=== PATIENT | female | born 1945 | race Caucasian/White ===

== ENCOUNTER 2016-11-19 11:01 | Observation (INO) | payer MEDICARE, MEDICAID ==
[~2016-11-19] VITALS: Ht 154.9 cm; Wt 123.0 kg
[~2016-11-19 11:01] MED LIST: LACTATED RINGER'S 1000 ML INJ 1,000 ML IV ONE; NEOSTIGMINE 3 MG/3 ML SYR IV ONE; ONDANSETRON HCL 4 MG/2 ML VIAL IV PUSH ONE; PROPOFOL 200 MG/20 ML AMP IV ONE
[2016-11-19] MEDS: LACTATED RINGER'S 1000 ML IV SCH (11:55)
[2016-11-19 11:57] VITALS: BP 169/97; PULSE 89; RESP 18; TEMP 97.9; O2SAT 96
[2016-11-19] MEDS ORDERED: PROPOFOL 200 MG/20 ML AMP IV ONE (12:00)
[2016-11-19] MEDS ORDERED: BUPIVACAINE/EPINEPHRINE 0.25% PF 30 ML VIAL ONE ×2 (12:25→14:02)
[2016-11-19 12:30] LABS: AUTOMATED NEUTROPHIL # 5.5 TH/MM3 (1.8-7.7); BASOPHIL % 0.6 % (0.0-2.0); EOSINOPHIL # 0.2 TH/MM3 (0-0.4); HEMATOCRIT 34.1 % (35.0-46.0); HEMO FLAGS DIFF FINAL; LYMPH % 20.6 % (9.0-44.0); LYMPHOCYTE # 1.6 TH/MM3 (1.0-4.8); MEAN CELL VOLUME 78.4 FL (80.0-100.0); MEAN CORPUSCULAR HEMOGLOBIN 26.2 PG (27.0-34.0); MEAN CORPUSCULAR HGB CONC 33.4 % (32.0-36.0); NEUT % 69.8 % (16.0-70.0); PLATELET COUNT 255 TH/MM3 (150-450); RED BLOOD COUNT 4.35 MIL/MM3 (4.00-5.30); RED CELL DISTRIBUTION WIDTH 14.2 % (11.6-17.2); WHITE BLOOD COUNT 7.9 TH/MM3 (4.0-11.0)
[2016-11-19] MEDS ORDERED: METOPROLOL TARTRATE 25 MG TAB PO PRN (12:30)
[2016-11-19] MEDS: SODIUM CHLORID 0.9% 500 ML IV SCH (12:30)
[2016-11-19] MEDS ORDERED: INSULIN HUMAN REGULAR 1,000 UNITS/10 ML VIAL SQ PRN (12:30)
[2016-11-19] MEDS: ceFAZolin 2 GM PREMIX 50 ML IV SCH (12:40)
[2016-11-19] MEDS ORDERED: APREPITANT 40 MG CAP ONE (12:54)
[2016-11-19] MEDS ORDERED: FAMOTIDINE 20 MG/2 ML VIAL ONE (12:54)
[2016-11-19] MEDS ORDERED: DEXAMETHASONE SOD PHOS 4 MG/ML VIAL ONE (13:10)
[2016-11-19] MEDS ORDERED: MIDAZOLAM HCL 2 MG/2 ML VIAL ONE ×2 (13:22→16:05)
[2016-11-19] MEDS ORDERED: fentaNYL CITRATE 250 MCG/5 ML AMP ONE (13:22)
[2016-11-19] MEDS ORDERED: ACETAMINOPHEN 1000 MG/100 ML VIAL IV ONE (13:23)
[2016-11-19] MEDS ORDERED: HYDROmorphone HCL PF 2 MG/ML VIAL ONE (13:37)
[2016-11-19] MEDS ORDERED: DO NOT ADM ANY ANTICOAGULANT DRUGS XX PRN (15:56)
[2016-11-19] MEDS: LACTATED RINGER'S 1000 ML INJ 1,000 ML IV SCH (15:57)
[2016-11-19] MEDS ORDERED: ACETAMINOPHEN/HYDROcodone 325 MG/5 MG TAB PO PRN (16:00)
[2016-11-19] MEDS ORDERED: MAGNESIUM HYDROXIDE SUSP 30 ML CUP PO PRN (16:00)
[2016-11-19] MEDS ORDERED: Post-op Orders (for Pharmacy) MISC XX ONE (16:00)
--- NOTE | 2016-11-19 16:05 | PD.OP ---
Operative Report Date of Surgery: Nov 19, 2016 Preoperative Diagnosis: incisional hernia x 2 Postoperative Diagnosis: same Procedure: open repair RUQ incisional hernia with retrorectus TIGR mesh, 6x 8 cm Open repair RLQ incisional hernia with 4x8 cm marlex mesh onlay. Anesthesia: general Surgeon: Bryce Lopez Medical Office Technician(s): Francisco Operation and Findings: EBL less than 25 ml 5 cm RUQ defect, retrorectus space able to be accessed. RLQ defect 4 cm diameter, retrorectus space not accessable due to scar. Bryce Lopez MD Nov 19, 2016 16:05
[2016-11-19] MEDS ORDERED: *ONDANSETRON 4 MG VIAL PERIprocedural Use ONLY ONE (16:12)
[2016-11-19] MEDS ORDERED: *HYDROmorphone PF 1 MG VIAL PERIprocedural Use ONLY ONE ×2 (16:24→18:34)
[2016-11-19] MEDS: ACETAMINOPHEN 1000 MG/100 ML VIAL IV SCH ×2 (18:00→23:46)
[2016-11-19] MEDS ORDERED: KETOROLAC TROMETHAMINE 30 MG/ML (IVP) VIAL IV PUSH SCH (18:00)
[2016-11-19] MEDS ORDERED: *diphenhydrAMINE HCL 50 MG/ML VIAL PERIprocedural Use ONLY ONE (18:34)
[2016-11-19 20:00] VITALS: BP 116/65; PULSE 97; RESP 18; TEMP 98.6; O2SAT 96
[2016-11-19] MEDS: SODIUM CHLORIDE 0.9% FLUSH 5 ML FLUSH IVF SCH (20:48)
[2016-11-19] MEDS: DOCUSATE SODIUM 100 MG CAP PO SCH (20:49)
[2016-11-19] MEDS: ONDANSETRON HCL 4 MG/2 ML VIAL IV PRN (20:49)
[2016-11-19] MEDS: HYDROmorphone HCL PF 1 MG/ML VIAL IV PRN ×2 (21:00→23:45)
[2016-11-20] VITALS (7 sets, daily range): BP systolic 113–142; BP diastolic 65–90; PULSE 72–109; RESP 12–20; TEMP 97.6–98.2; O2SAT 93–98
[2016-11-20] MEDS: ONDANSETRON HCL 4 MG/2 ML VIAL IV PRN ×5 (01:06→21:12)
[2016-11-20] MEDS: LACTATED RINGER'S 1000 ML INJ 1,000 ML IV SCH ×3 (03:05→19:53)
[2016-11-20] MEDS: ceFAZolin 2 GM PREMIX 50 ML IV SCH ×2 (03:05→07:53)
[2016-11-20] MEDS: HYDROmorphone HCL PF 1 MG/ML VIAL IV PRN ×7 (03:48→23:53)
[2016-11-20] MEDS: SODIUM CHLORID 0.9% 500 ML IV SCH (05:10)
[2016-11-20] MEDS: ACETAMINOPHEN 1000 MG/100 ML VIAL IV SCH ×5 (06:00→23:53)
--- NOTE | 2016-11-20 07:52 | MP ---
cc: JOSIANE TAY M.D. DATE OF SURGERY 11/19/2016 PREOPERATIVE DIAGNOSIS Ventral incisional hernia x2. POSTOPERATIVE DIAGNOSES Ventral incisional hernia x2. PROCEDURE Open repair right upper quadrant incisional hernia with retrorectus TIGR mesh 6 x 8 cm, open repair right lower quadrant incisional hernia with Marlex mesh 4 x [address] Josiane Tay ANESTHESIA General endotracheal INDICATIONS This is a very pleasant 71-year-old woman well-known to me from prior laparoscopic repair of a large left flank recurrent incisional hernia with [place]-Toni and who presents with slightly increasing in size incisional hernias in the right upper and right lower quadrant of the abdomen. She has had multiple prior surgeries and these are likely related to incisional interventions in the past. Due to the relative local focality to the hernias and the desire for a less invasive procedure, plans were made for local open repairs with mesh. INTRAOPERATIVE FINDINGS Right upper quadrant defect approximately 5 cm in length. The retrorectus space was able to be accessed in the TIGR mesh positioned in the retrorectus space as a buttress to the primary repair. Right lower quadrant defect approximately 4 cm in diameter, the retrorectus space was not accessible due to depth of the wound and the severity of the scar. Primary closure with onlay Marlex mesh was performed. ESTIMATED BLOOD LOSS Less than 25 mL. DESCRIPTION OF PROCEDURES IN DETAIL The patient was identified as Jordyn Koroma, taken to the operating room, placed in the supine position. Sequential compression devices were placed on bilateral lower extremities. Following the induction of adequate general endotracheal anesthesia, the patient's abdomen was prepped and draped in the usual sterile fashion with Betadine. A time-out procedure was performed. Following completion of the time-out procedure to everyone's satisfaction within the room, proposed incisions were made with a marking pen overlying the area of the palpable herniated tissue. 0.25% Marcaine with epinephrine was placed at each incision site generously around the proposed area of dissection. The right upper quadrant was attended to first. The incision was carried out with a scalpel. Hemostasis was controlled with electrocautery dissecting posteriorly through generous subcutaneous fatty tissue layer until the herniated tissue was identified. This was from surrounding subcutaneous tissues which allowed for identification of the fascial edges. The posterior fascia and peritoneum were able to be dissected free of the herniated tissue and measurements were taken. A 6 x 8 cm piece of TIGR mesh was cut from a 10 x 15 inches piece and sutures were placed at the 12, 3, 6 and 9 o'clock positions with 2-0 PDS. These were then brought through the fascia with at least a 2 cm overlay using the Sovi suture passer device. The sutures were tied down and the primary fascial defect was closed with interrupted horizontal mattress 0-Prolene sutures. The subcutaneous space was then approximated with interrupted 2-0 Vicryl sutures and the skin was approximated with a running 4-0 Monocryl subcuticular suture. Mastisol and half-inch brown Steri-Strips were placed over the incision. Attention was then turned to the right lower quadrant. After infiltration of the area with local anesthetic, the incision was carried out with a scalpel and hemostasis controlled with electrocautery. Dissection continued posteriorly through a very deep subcutaneous fatty tissue layer until herniated contents were identified. These were from the subcutaneous fatty tissue so the fascial defect could be identified. There was no plane that could be obtained in the retrorectus position and therefore first the peritoneum was imbricated with 2-0 Vicryl suture and then the anterior fascia was approximated with a running 2-0 Vicryl suture. Measurements were taken. The anterior fascia was cleared to scar tissue and a 4 x 8 cm piece of Marlex mesh was cut and placed in an onlay position. It was held in place with interrupted 2-0 PDS sutures placed first at the 3 o'clock, then 9 o'clock position and then three separate sutures were placed on the inferior and superior edge making the mesh taut. Copious irrigation ensued. There was no evidence of bleeding. The subcutaneous layer was approximated gently with multiple interrupted 2-0 Vicryl sutures. Skin was approximated with a running 4-0 Monocryl subcuticular suture. Dressings were applied with Mastisol and inch brown Steri-Strips. A Primapore dressing was placed over both incision sites. The patient tolerated the procedure without apparent complication. Sponge, needle and instrument counts were correct at the end the case. MD LEANDRA Pantoja/ROCK /4:09 PM /7:41 AM
--- NOTE | 2016-11-20 08:20 | HHI.PR ---
Subjective Subjective Notes sitting up in chair. Had been emptying bladder normally, now just dribbles out, no dysuria. Mild nausea. Objective Vitals/I&O Vital Signs Date Time Temp Pulse Resp B/P Pulse Ox O2 Delivery O2 Flow Rate FiO2 11/20/16 00:00 97.6 98 18 140/82 98 11/19/16 21:55 Nasal Cannula 2.00 Labs Laboratory Tests Test 11/19/16 12:03 White Blood Count 7.9 Red Blood Count 4.35 Hemoglobin 11.4 Hematocrit 34.1 Mean Corpuscular Volume 78.4 Mean Corpuscular Hemoglobin 26.2 Mean Corpuscular Hemoglobin 33.4 Concent Red Cell Distribution Width 14.2 Platelet Count 255 Mean Platelet Volume 7.9 Neutrophils (%) (Auto) 69.8 Lymphocytes (%) (Auto) 20.6 Monocytes (%) (Auto) 6.0 Eosinophils (%) (Auto) 3.0 Basophils (%) (Auto) 0.6 Neutrophils # (Auto) 5.5 Lymphocytes # (Auto) 1.6 Monocytes # (Auto) 0.5 Eosinophils # (Auto) 0.2 Basophils # (Auto) 0.0 CBC Comment DIFF FINAL Differential Comment Lungs: Clear Abdomen: Non-distended, Other (mild bloody drainage on dressings, no erythema.) , Post-op tenderness Extremities: No edema, Perfused A/P Assessment and Plan POD 1 open repair incarcerated VIH x 2 with mesh. Nausea, some urinary issues. Pt requests to stay today with plans for Dc tomorrow. Will check UA, BMP, Magnesium. Bryce Lopez MD Nov 20, 2016 08:20
[2016-11-20] MEDS: DOCUSATE SODIUM 100 MG CAP PO SCH ×2 (08:29→19:52)
[2016-11-20] MEDS: SODIUM CHLORIDE 0.9% FLUSH 5 ML FLUSH IVF SCH ×2 (08:29→19:51)
[2016-11-20 11:55] LABS: BLOOD, URINE NEG (NEG); GLUCOSE,URINE NEG (NEG); KETONE, URINE NEG (NEG); MUCUS URINE FEW /lpf (OCC); NITRITE,URINE NEG (NEG); PH, URINE 5.5 (5.0-8.5); SQUAMOUS EPITHELIAL CELL URINE 1 /hpf (0-5); URINE COLOR YELLOW (YELLW/STRAW)
[2016-11-20 11:58] LABS: COMMENT (UR) CULT NOT INDICATED; CULTURE IF INDICATED CULT NOT INDICATED
[2016-11-20] MEDS: LACTATED RINGER'S 1000 ML IV SCH (12:30)
[2016-11-20 13:44] LABS: BICARBONATE 28.9 MEQ/L (21.0-32.0); POTASSIUM 4.6 MEQ/L (3.5-5.1)
[2016-11-20] MEDS: ENOXAPARIN SODIUM 40 MG/0.4 ML SYRINGE SQ SCH (15:24)
[2016-11-21] MEDS: HYDROmorphone HCL PF 1 MG/ML VIAL IV PRN ×9 (01:54→22:46)
[2016-11-21] MEDS: ACETAMINOPHEN 1000 MG/100 ML VIAL IV SCH ×4 (06:00→22:46)
[2016-11-21] MEDS: LACTATED RINGER'S 1000 ML INJ 1,000 ML IV SCH ×3 (07:57→22:47)
[2016-11-21 08:00] VITALS: BP 121/72; PULSE 93; RESP 20; TEMP 97.1; O2SAT 92
[2016-11-21] MEDS: SODIUM CHLORIDE 0.9% FLUSH 5 ML FLUSH IVF SCH ×2 (08:05→22:46)
[2016-11-21] MEDS: ONDANSETRON HCL 4 MG/2 ML VIAL IV PRN ×3 (08:06→17:20)
[2016-11-21] MEDS: DOCUSATE SODIUM 100 MG CAP PO SCH ×2 (08:07→22:46)
[2016-11-21] MEDS ORDERED: RESP: ALBUTEROL CONC 2.5 MG/0.5 ML NEB NEB ONE (09:45)
[2016-11-21] MEDS ORDERED: HYDR-3533 PO (09:48)
[2016-11-21] MEDS ORDERED: ZOFR4TAB PO (09:48)
--- NOTE | 2016-11-21 09:50 | HHI.PR ---
Subjective Subjective Notes nausea, feels like phlegm stuck in back of throat. Objective Vitals/I&O Vital Signs Date Time Temp Pulse Resp B/P Pulse Ox O2 Delivery O2 Flow Rate FiO2 11/21/16 08:00 97.1 93 20 121/72 92 11/20/16 18:48 21 11/19/16 21:55 Nasal Cannula 2.00 Labs Laboratory Tests Test 11/20/16 11/20/16 10:20 11:07 Sodium Level 137 Potassium Level 4.6 Chloride Level 101 Carbon Dioxide Level 28.9 Anion Gap 7 Blood Urea Nitrogen 14 Creatinine 0.87 Estimat Glomerular Filtration 64 Rate Random Glucose 129 Calcium Level 8.7 Magnesium Level 2.0 Urine Color YELLOW Urine Turbidity CLEAR Urine pH 5.5 Urine Specific [place] 1.025 Urine Protein TRACE Urine Glucose (UA) NEG Urine Ketones NEG Urine Occult Blood NEG Urine Nitrite NEG Urine Bilirubin NEG Urine Urobilinogen LESS THAN 2.0 Urine Leukocyte Esterase NEG Urine RBC 1 Urine WBC 1 Urine Squamous Epithelial 1 Cells Urine Mucus FEW Microscopic Urinalysis Comment CULT NOT INDICATED Lungs: Clear Abdomen: Non-distended, Other (incision sites clean and dry, no erythema.), Post-op tenderness Extremities: No edema, Perfused A/P Assessment and Plan POD 2 open repair incarcerated VIH x 2 with mesh. Labs OK. UA negative. IS and albuterol ordered. Hopefully home tomorrow. Keep walking. Bryce Lopez MD Nov 21, 2016 09:50
[2016-11-21 12:00] VITALS: BP 124/75; PULSE 89; RESP 20; TEMP 98; O2SAT 96
[2016-11-21] MEDS: ENOXAPARIN SODIUM 40 MG/0.4 ML SYRINGE SQ SCH (14:06)
[2016-11-21] MEDS ORDERED: RESP: ALBUTEROL 2.5 MG/3 ML NEB (SCH) INH ONE (15:00)
[2016-11-21 16:00] VITALS: BP 116/67; PULSE 93; RESP 20; TEMP 98.4; O2SAT 92
[2016-11-21 20:00] VITALS: BP 140/80; PULSE 94; RESP 18; TEMP 96.7; O2SAT 92
[2016-11-21 21:02] VITALS: O2SAT 94
[2016-11-22] VITALS: BP 134/78; PULSE 90; RESP 20; TEMP 97.2; O2SAT 93
[2016-11-22] MEDS: HYDROmorphone HCL PF 1 MG/ML VIAL IV PRN ×7 (00:46→15:15)
[2016-11-22] MEDS: ONDANSETRON HCL 4 MG/2 ML VIAL IV PRN ×3 (00:48→10:55)
[2016-11-22] MEDS: ACETAMINOPHEN 1000 MG/100 ML VIAL IV SCH ×2 (05:56→07:35)
[2016-11-22] MEDS: SODIUM CHLORIDE 0.9% FLUSH 5 ML FLUSH IVF SCH (07:35)
[2016-11-22] MEDS: DOCUSATE SODIUM 100 MG CAP PO SCH (07:35)
[2016-11-22 08:00] VITALS: BP_SYST 126; BP_SYST 129; BP_DIAS 65; BP_DIAS 80; PULSE 91; PULSE 97; RESP 12; RESP 18; TEMP 97; TEMP 98.6; O2SAT 90; O2SAT 97
[2016-11-22 12:00] VITALS: BP 133/74; PULSE 92; RESP 20; TEMP 96.9; O2SAT 95
[2016-11-22] MEDS: SODIUM CHLORIDE 0.9% FLUSH 5 ML FLUSH IVF PRN ×2 (13:19→15:16)
[2016-11-22 13:48] VITALS: RESP 18
[2016-11-22] MEDS: LACTATED RINGER'S 1000 ML INJ 1,000 ML IV SCH (13:57)
[2016-11-22] MEDS: ENOXAPARIN SODIUM 40 MG/0.4 ML SYRINGE SQ SCH (15:16)
[2016-11-22] MEDS ORDERED: DILA2TAB2 PO (16:01)
[2016-11-22] MEDS ORDERED: diphenhydrAMINE HCL 2%/ZINC ACETATE 0.1% CREAM 30 APPLIC/30 GM TUBE TOPICAL ONE (16:15)
--- NOTE | 2016-12-13 14:57 | HHI.DS ---
Discharge Summary Admission Date Nov 19, 2016 at 16:31 Discharge Date: Nov 22, 2016 Admitting Diagnosis Brief History 71 year old female POD2 open repair of incarcerated ventral incision hernia repair with mesh. PE at Discharge Alert and awake Cardio: RRR Resp: CTAB Abd: incision c/d/i Hospital Course This is a 71 year old female s/p open repair incarcerated VIH x 2 with mesh. The patient was able to tolerate a regular diet. Her pain was controlled using oral pain medications. She was encouraged to use her inceptive spirometer. She was DCed home with instructions to follow up in the office. Pt Condition on Discharge: Good Discharge Disposition: Discharge Home Discharge Instructions DIET: Follow Instructions for: As Tolerated, No Restrictions Activities you can perform: Shower Only-No Bath Other Activity Instructions: wear binder for support. Mary Chavez Dec 13, 2016 14:57
== END 2016-11-22 16:46 | disposition home or self-care (01) ==
LOC: HSDC 11:01 → HSDI 16:31 → N07A 19:11
PROVIDERS: ADMIT Surgery Trauma Surgery; ATTEND Surgery Trauma Surgery
DX: K43.2 Incisional hernia without obstruction or gangrene (principal); Z85.528 Personal history of other malignant neoplasm of kidney
CPT/HCPCS: 00832; 49560; 49568; 80048; 81001; 83735; 85025; 94150; 94664; C1781; G0378; J0131; J0690; J1100; J1170; J1200; J1650; J2250; J2405; J2710; J3010; J7120; J7613; J8501

== ENCOUNTER → 2016-12-19 | Outpatient (CLI) | payer MEDICARE, MEDICAID ==
[~2016-12-19] MED LIST changes: +DILA2TAB2 PO; -LACTATED RINGER'S 1000 ML INJ 1,000 ML IV ONE; -NEOSTIGMINE 3 MG/3 ML SYR IV ONE; -ONDANSETRON HCL 4 MG/2 ML VIAL IV PUSH ONE; -PROPOFOL 200 MG/20 ML AMP IV ONE; +ZOFR4TAB PO
== END ==
LOC: PLAB 11:15
PROVIDERS: ATTEND Surgery Trauma Surgery
DX: Z01.89 Encounter for other specified special examinations (principal)
CPT/HCPCS: 36415; 82565; 84520

== ENCOUNTER → 2018-01-23 | Outpatient (CLI) | payer MEDICARE, MEDICAID ==
[~2018-01-23] MED LIST changes: -DILA2TAB2 PO; +DILA2TAB4 PO; +META48.53 PO
[2018-01-23 11:29] LABS: AUTOMATED NEUTROPHIL # 5.2 TH/MM3 (1.8-7.7); BASOPHIL # 0.1 TH/MM3 (0-0.2); BASOPHIL % 0.8 % (0.0-2.0); EOSINOPHIL # 0.2 TH/MM3 (0-0.4); EOSINOPHIL % 2.8 % (0.0-4.0); HEMATOCRIT 36.1 % (35.0-46.0); LYMPHOCYTE # 1.7 TH/MM3 (1.0-4.8); MEAN CELL VOLUME 81.2 FL (80.0-100.0); MEAN CORPUSCULAR HGB CONC 33.3 % (32.0-36.0); MEAN PLATELET VOLUME 7.9 FL (7.0-11.0); MONO % 5.9 % (0.0-8.0); MONOCYTE # 0.5 TH/MM3 (0-0.9); NEUT % 68.5 % (16.0-70.0); PLATELET COUNT 283 TH/MM3 (150-450); RED BLOOD COUNT 4.45 MIL/MM3 (4.00-5.30); RED CELL DISTRIBUTION WIDTH 13.8 % (11.6-17.2); WHITE BLOOD COUNT 7.7 TH/MM3 (4.0-11.0)
[2018-01-23 11:56] LABS: ALT (GPT) 25 U/L (10-53)
[2018-01-23 11:59] LABS: ALKALINE PHOSPHATASE 105 U/L (45-117); TOTAL BILIRUBIN ADULT 0.4 MG/DL (0.2-1.0); TOTAL PROTEIN 8.2 GM/DL (6.4-8.2)
[2018-01-23 12:01] LABS: ALBUMIN 3.9 GM/DL (3.4-5.0); AST (GOT) 20 U/L (15-37); BICARBONATE 30.4 MEQ/L (21.0-32.0); BLOOD UREA NITROGEN 13 MG/DL (7-18); CALCIUM 9.6 MG/DL (8.5-10.1); CHLORIDE 106 MEQ/L (98-107); CREATININE 0.88 MG/DL (0.50-1.00); GLOMERULAR FILTRATION RATE 63 ML/MIN (>89); GLUCOSE,FASTING 104 MG/DL (74-99); SODIUM (NA) 140 MEQ/L (136-145)
--- NOTE | 2018-01-24 11:05 | EKG ---
Date Performed: 01/23/2018 Time Performed: 10:38:34 PTAGE: 72 years EKG: Sinus rhythm NORMAL ECG Compared to PREVIOUS TRACING , PACs have resolved. PREVIOUS TRACIN04/19/2016 06.56 DOCTOR: Shon Robles Interpretating Date/Time 01/24/2018 11:03:35
== END ==
LOC: CPRE 10:10
PROVIDERS: ATTEND Surgery Trauma Surgery
DX: Z01.810 Encounter for preprocedural cardiovascular examination (principal); Z01.812 Encounter for preprocedural laboratory examination; R10.9 Unspecified abdominal pain
CPT/HCPCS: 36415; 80053; 85025; 93005

== ENCOUNTER 2018-01-28 11:16 | Inpatient (IN) | payer MEDICARE, MEDICAID ==
[~2018-01-28] VITALS: Ht 154.9 cm; Wt 115.1 kg
[~2018-01-28 11:16] MED LIST changes: -DILA2TAB4 PO; -ZOFR4TAB PO
[2018-01-28] MEDS ORDERED: PROPOFOL 200 MG/20 ML AMP IV ONE (12:00)
[2018-01-28] MEDS ORDERED: SODIUM CHLORID 0.9% 500 ML IV PRN (12:00)
[2018-01-28] MEDS ORDERED: NEOSTIGMINE 5 MG/5 ML SYRINGE IV PUSH ONE (12:00)
[2018-01-28] MEDS ORDERED: CHLORHEXIDINE GLUCONATE 2 % 1 PACK (2 CLOTHS) TOPICAL PRN (12:00)
[2018-01-28] MEDS ORDERED: DEXAMETHASONE SOD PHOS 4 MG/ML VIAL IV ONE (12:00)
[2018-01-28] MEDS ORDERED: POVIDONE IODINE 5% (ANTISEPSIS KIT) 4 APPLICATIONS EACH NARE PRN (12:00)
[2018-01-28] MEDS ORDERED: ceFAZolin 2 GM/NS PREMIX 100 ML IV SCH (12:00)
[2018-01-28] MEDS ORDERED: LIDOCAINE HCL 1% PF 5 ML SYRINGE OTHER ONE (12:00)
[2018-01-28] MEDS ORDERED: GLYCOPYRROLATE 1 MG/5 ML SYRINGE IV PUSH ONE (12:00)
[2018-01-28] MEDS ORDERED: ONDANSETRON HCL 4 MG/2 ML VIAL IV PUSH ONE ×2 (12:00→22:15)
[2018-01-28] MEDS ORDERED: INSULIN HUMAN REGULAR 1,000 UNITS/10 ML VIAL SQ PRN (12:00)
[2018-01-28] MEDS ORDERED: METOPROLOL TARTRATE 25 MG TAB PO PRN (12:00)
[2018-01-28] MEDS ORDERED: ROCURONIUM INJ 50 MG/5 ML SYRINGE IV PUSH ONE (12:00)
[2018-01-28] MEDS: LACTATED RINGER'S 1000 ML IV PRN (12:48)
[2018-01-28] MEDS ORDERED: BUPIVACAINE/EPINEPHRINE 0.25% 50 ML VIAL ONE ×2 (12:54→16:04)
[2018-01-28] MEDS ORDERED: HYDROmorphone HCL PF 2 MG/ML VIAL ONE ×2 (13:08→15:26)
[2018-01-28] MEDS ORDERED: APREPITANT 40 MG CAP ONE (13:10)
[2018-01-28] MEDS ORDERED: FAMOTIDINE 20 MG/2 ML VIAL ONE (13:18)
[2018-01-28] MEDS ORDERED: MIDAZOLAM HCL 2 MG/2 ML VIAL IV ONE (13:30)
[2018-01-28] MEDS ORDERED: APREPITANT 40 MG CAP PO ONE (13:30)
[2018-01-28] MEDS ORDERED: FAMOTIDINE 20 MG/2 ML VIAL IV ONE (13:30)
[2018-01-28] MEDS ORDERED: NALOXONE HCL 0.4 MG/ML AMP ONE (16:49)
[2018-01-28] MEDS ORDERED: Post-op Orders (for Pharmacy) XX ONE (17:00)
[2018-01-28] MEDS ORDERED: NALOXONE HCL 0.4 MG/ML AMP IV PUSH PRN ×2 (17:00)
[2018-01-28] MEDS ORDERED: NON-FORMULARY DRUG (Psyllium Powder (Metamucil Original Texture) 1 SCOOP) PO PRN (17:00)
[2018-01-28] MEDS: PANTOPRAZOLE SOD 40 MG DELAYED RELEASE TAB PO SCH (17:00)
--- NOTE | 2018-01-28 17:14 | PD.OP ---
Operative Report Date of Surgery: Jan 28, 2018 Preoperative Diagnosis: Multiple recurrent ventral incisional hernias Gallstones, right upper quadrant pain Postoperative Diagnosis: Same Extensive intra-abdominal adhesions Procedure: Laparoscopic extensive adhesio lysis greater than 1 hour Laparoscopic repair recurrent ventral incisional hernias with [place]-Toni DualMesh 20 x 22 cm Laparoscopic cholecystectomy Anesthesia: General endotracheal Surgeon: Bryce Lopez Interpretive Program Coordinator(s): Juaquin Operation and Findings: Indications for procedure Is a very pleasant 72-year-old woman familiar to me after prior laparoscopic repair of a large left flank incisional hernia with [place]-Toni DualMesh. She is developed relatively asymptomatic recurrent ventral incisional hernias until recently when she began experiencing increasing episodes of pain. CT scan demonstrates 3 separate ventral incisional hernia defects in addition to gallstones confirmed on ultrasound. The patient desired operative intervention. Intraoperative findings extensive intra-abdominal adhesions, 3 separate ventral incisional hernia defects 1 upper midline on lower midline and one left side abdominal wall just medial to previously placed mesh. Incarcerated contents safely reduced. No evidence of intra-abdominal bowel injury. Gallbladder relatively noninflamed removed and sent to pathology. Estimated blood loss 50 mL. Description of procedure in detail The patient was identified as Jordyn Koroma taken to the operating room and placed in a supine position. Sequential compression devices were placed on bilateral lower extremities. Following induction of adequate general endotracheal anesthesia the patient's abdomen was prepped and draped in usual sterile fashion with Betadine. A timeout procedure was performed. Following completion of timeout procedure everyone's satisfaction within the room local anesthetic was infiltrated the proposed right lateral subcostal incision site. A 2-3 cm transverse incision was carried out the scalpel at the site dissection continued posteriorly using the surgeon's finger and a hemostat. This occurred through the anterior fascia and muscular layers until the posterior fashion peritoneum was encountered and this was entered with the surgeon's finger. A 5 mm balloon tip Evans trocar was placed in the peritoneal cavity its balloon inflated and CO2 insufflation to level of 15 mmHg ensued. Laparoscopic camera was placed into the peritoneal cavity and intra-abdominal adhesions were discovered. Right side of the abdominal cavity was relatively uninvolved and 2 5 mm trochars were placed into the peritoneal cavity through separate incision sites after instillation of local anesthetic anesthetic. Easy lysis was then performed. Adhesions were taken down with a combination of blunt dissection and when safe harmonic scalpel. Care was taken to avoid using the harmonic scalpel anywhere close to intestine. 3 separate hernia defects were identified and the tissue incarcerated in the defects was carefully removed. One was in the upper midline one was in the lower midline and the final one was found in the left mid abdomen just medial to the previously placed mesh. This corresponded with what was seen on the preoperative CT scan. Once this was completed 2 of the 5 mm trochars removed to a more medial position allowing for removal of the gallbladder. Separate incisions after instillation of local anesthetic was performed. Laparoscopic cholecystectomy was then performed in a dome down technique. The gallbladder was removed using the harmonic scalpel. Cystic arterial branch was divided with a harmonic scalpel. The cystic duct was isolated from surrounding tissues and ligated proximally and distally with 0 PDS Endoloops. The cystic duct was divided with a harmonic scalpel. The gallbladder was placed into an Endo retrieval bag and removed through the initial right lateral subcostal incision site and passed off the field for pathologic evaluation. There was no spillage of bile. The right upper quadrant was irrigated out copiously with saline and small amount of bloody drainage was suctioned out. The gallbladder fossa was hemostatic. The cystic arterial stump was dry. The cystic duct ligature remained intact. Attention was then returned to repair of the ventral incisional hernias. Measurement of the area of required to be covered was performed and a 20 x 30 cm piece of [place]-Toni DualMesh was selected. It was cut to more oval-shaped 20 x 22 cm piece and marked the proposed top and bottom right and left sides on both the smooth side and the corduroy side. [place] CVO sutures were then placed about a centimeter to from the edge of the mesh at the 12:00 6:00 3:00 and 9:00 positions. The mesh was then rolled and placed into the peritoneal cavity through the right lateral subcostal incision site taking care to avoid the mesh touching the skin. Intra-abdominally the mesh was unrolled and sutures which had been placed were brought out through separate small stab incisions after instillation of local anesthetic using the [place] suture passer device. 3 o' clock position then 12 o'clock position and 6 o'clock position and 9 o'clock position sutures were brought up. The mesh was taught in a megan shape after this was performed. The sutures were tied down. Using the tacking device tacks were then placed every 1-2 cm along the periphery of the mesh first between the 3 and 6 o'clock position then the 9 and 12 o'clock position then the 12 and 3 o'clock position and finally between the 6 and 9:00 positions. His created a nice taut mesh broadly covering the hernia defects. Additional full-thickness stay sutures using [place] CVO sutures were then placed equidistant between the 3 and 6:00 6 and 9:00 12 and 3:00 and finally between the 9 and 12: 00 positions. The [place] suture passer was used to complete this portion of the procedure. Photographs were taken of the completed procedure. Hernia defects were broadly covered. Trochars were sequentially removed under direct laparoscopic view and there was no evidence of bleeding from trocar sites. The peritoneal cavity was actively desufflated through the right lateral subcostal trocar. Right lateral subcostal incision was closed with multiple interrupted 0 Vicryl sutures at the deep and superficial fascial layers. Skin incisions were trochars were placed were closed with multiple interrupted 4-0 Monocryl subcuticular sutures. Dressings were applied with Mastisol and half-inch brown Steri-Strips. A sterile towel and a customized abdominal binder were then placed. The patient tolerated the procedure without apparent complication. Sponge needle and instrument counts were correct at the end of the case. Due to the length of the procedure and the extent of the dissection prior to waking the patient up with a Scales catheter was placed. Bryce Lopez MD Jan 28, 2018 17:14
[2018-01-28] MEDS ORDERED: *ONDANSETRON 4 MG VIAL PERIprocedural Use ONLY ONE (17:32)
[2018-01-28] MEDS: ACETAMINOPHEN 1000 MG/100 ML 100 ML IV SCH (17:40)
[2018-01-28] MEDS: LACTATED RINGER'S 1000 ML INJ 1,000 ML IV SCH (17:45)
[2018-01-28] MEDS ORDERED: *HYDROmorphone PF 0.5 MG/0.5 ML PERIprocedure ONLY ONE ×2 (18:04→18:27)
[2018-01-28] MEDS ORDERED: DO NOT ADM ANY ANTICOAGULANT DRUGS PRN (18:30)
[2018-01-28] MEDS: ONDANSETRON HCL 4 MG/2 ML VIAL IV PUSH PRN (20:49)
[2018-01-28] MEDS: DOCUSATE SODIUM 100 MG CAP PO SCH (21:00)
[2018-01-28] MEDS: HYDROmorphone HCL PCA 6 MG/30 ML IV SCH (21:24)
[2018-01-28 21:41] VITALS: O2SAT 98
[2018-01-28 21:42] VITALS: O2SAT 98
[2018-01-28] MEDS: PCA - TOTAL MG DILAUDID DELIVERED PER SHIFT OTHER SCH (22:00)
[2018-01-29] VITALS (7 sets, daily range): BP systolic 100–138; BP diastolic 55–79; PULSE 61–78; RESP 18–20; TEMP 97.1–98.4; O2SAT 93–99
[2018-01-29] MEDS: ACETAMINOPHEN 1000 MG/100 ML 100 ML IV SCH ×4 (00:13→17:42)
[2018-01-29] MEDS: LACTATED RINGER'S 1000 ML INJ 1,000 ML IV SCH ×2 (03:38→08:03)
[2018-01-29 05:33] LABS: BICARBONATE 28.9 MEQ/L (21.0-32.0); CALCIUM 8.3 MG/DL (8.5-10.1); CREATININE 0.89 MG/DL (0.50-1.00)
[2018-01-29] MEDS: PCA - TOTAL MG DILAUDID DELIVERED PER SHIFT OTHER SCH ×3 (06:00→22:00)
[2018-01-29] MEDS: HYDROmorphone HCL PCA 6 MG/30 ML IV SCH ×2 (06:15→22:16)
[2018-01-29] MEDS: ONDANSETRON HCL 4 MG/2 ML VIAL IV PUSH PRN ×3 (08:00→20:26)
[2018-01-29] MEDS: DOCUSATE SODIUM 100 MG CAP PO SCH (08:03)
[2018-01-29] MEDS: SCOPOLAMINE 1.5 MG PATCH T-DERMAL SCH (13:54)
--- NOTE | 2018-01-29 15:44 | HHI.PR ---
Subjective Subjective Notes Up to chair Nauseous Objective Vitals/I&O Vital Signs Date Time Temp Pulse Resp B/P (MAP) Pulse Ox O2 Delivery O2 Flow Rate FiO2 01/29/18 11:48 98.4 63 18 100/58 (72) 97 01/28/18 21:42 Nasal Cannula 2.00 Labs Laboratory Tests Test 01/29/18 04:50 Blood Urea Nitrogen 11 Creatinine 0.89 Random Glucose 159 Calcium Level 8.3 Sodium Level 139 Potassium Level 4.7 Chloride Level 106 Carbon Dioxide Level 28.9 Anion Gap 4 Estimat Glomerular Filtration Rate 63 Cardiovascular: Regular Lungs: Clear Abdomen: Other (lap sites c/d/i; mildly distended ), Post-op tenderness Extremities: No edema Narrative Exam Scales in place with clear yellow urine A/P Assessment and Plan 72 year old female POD1 Lap extensive DAVID; Lap repair recurrent ventral incisional hernias with [place]-Toni DualMesh 20 x 22 cm; lap blas -Added scopolamine patch for nausea -Zofran also available -Diet as tolerated -IVF -Keep Scales in for now -OOB and mobilize as tolerated Attending Statement I personally evaluated the patient postop day 1. The patient was up in a chair. She appeared relatively comfortable. She has had some nausea. She thinks it may be related to her pain medications. Her lungs are clear. Her heart sounds are regular without obvious murmur rub or gallop. Her abdomen was examined and all of her incision sites appear to be healing well but he Steri-Strips. There is no sign of erythema or drainage of. Her extremities are nonedematous. Postop day 1. Add scopolamine patch for nausea. Minimize narcotic use. Patient requests removal of Scales tomorrow. The exam, history, and the medical decision-making described in the above note were completed with the assistance of the mid-level provider. I reviewed and agree with the findings presented. I attest that I had a [id number] encounter with the patient on the same day, and personally performed and documented my assessment and findings in the medical record. Mary Chavez/[employer] [place] JAZZ SINGER Jan 29, 2018 15:44 Bryce Lopez MD Jan 30, 2018 15:43
[2018-01-29] MEDS: LACTATED RINGER'S 1000 ML IV PRN (15:58)
[2018-01-29] MEDS: PANTOPRAZOLE SOD 40 MG DELAYED RELEASE TAB PO SCH (16:01)
[2018-01-29] MEDS: ENOXAPARIN SODIUM 40 MG/0.4 ML SYRINGE SQ SCH (16:02)
[2018-01-30] MEDS: LACTATED RINGER'S 1000 ML INJ 1,000 ML IV SCH
[2018-01-30 00:10] VITALS: BP 121/61; PULSE 78; RESP 18; TEMP 97.6; O2SAT 96
[2018-01-30] MEDS: ACETAMINOPHEN 1000 MG/100 ML 100 ML IV SCH ×4 (01:16→17:05)
[2018-01-30] MEDS: PCA - TOTAL MG DILAUDID DELIVERED PER SHIFT OTHER SCH ×3 (06:00→20:47)
[2018-01-30 06:30] VITALS: BP 125/58; PULSE 111; RESP 17; TEMP 97.7; O2SAT 95
[2018-01-30 08:00] VITALS: BP 120/76; PULSE 84; RESP 19; TEMP 97.7; O2SAT 100
[2018-01-30] MEDS: ONDANSETRON HCL 4 MG/2 ML VIAL IV PUSH PRN ×3 (08:15→20:46)
[2018-01-30] MEDS: DOCUSATE SODIUM 100 MG CAP PO SCH ×2 (08:17→20:46)
[2018-01-30 12:00] VITALS: BP 129/81; PULSE 97; RESP 18; TEMP 98; O2SAT 95
[2018-01-30] MEDS: LACTATED RINGER'S 1000 ML IV PRN (13:24)
--- NOTE | 2018-01-30 13:27 | HHI.PR ---
Subjective Subjective Notes Up to chair No issues overnight Nausea has improved from yesterday Objective Vitals/I&O Vital Signs Date Time Temp Pulse Resp B/P (MAP) Pulse Ox O2 Delivery O2 Flow Rate FiO2 01/30/18 08:00 97.7 84 19 120/76 (91) 100 01/29/18 21:57 21 01/29/18 09:48 Nasal Cannula 3.00 Cardiovascular: Regular Lungs: Clear Abdomen: Other (BInder in place; removed and visualized lap sites all c/d/i; obese abdomen; non distrended; repositoned binder ), Post-op tenderness Extremities: No edema Narrative Exam Scales removed A/P Assessment and Plan 72 year old female; morbidly obese; POD2 Lap extensive DAVID; Lap repair recurrent ventral incisional hernias with [place]-Toni DualMesh 20 x 22 cm; lap blas -Scopolamine patch for nausea -Zofran also available -Regular diet -DC IVF -Scales removed; await post removal void -OOB and mobilize as tolerated Attending Statement Patient evaluated by me in the afternoon of January 30, 2018. The patient indicates she is doing a little bit better though her nausea persists. She has been up walking the halls a couple times with the nurses. She had her catheter removed but has not emptied her bladder yet. She does have postsurgical pain which is totally appropriate for the procedure that she underwent 2 days ago. She says she feels a little congested. Her lung sounds are clear to auscultation anteriorly bilaterally. Her heart sounds are regular without tachycardia murmur rub or gallop. Her abdomen is soft and nondistended she has few normal bowel sounds. Her incision sites are all healing well but he Steri-Strips. A couple locations there is minor ecchymotic change but no erythema or drainage. Her extremities are nonedematous. Postoperative day 2 status post laparoscopic repair recurrent ventral incisional hernias with [place]-Toni DualMesh, laparoscopic cholecystectomy. Postoperative nausea slightly improved. I discussed with the patient this is likely related to her narcotic use and the sensitivities she has 2 narcotic pain medications. 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 She declines Phenergan suppository. She wants to keep everything the same for now. The exam, history, and the medical decision-making described in the above note were completed with the assistance of the mid-level provider. I reviewed and agree with the findings presented. I attest that I had a [id number] encounter with the patient on the same day, and personally performed and documented my assessment and findings in the medical record. Mary ChavezP/Wrist Liner SHOOTING GALLERY OPERATOR Jan 30, 2018 13:27 Bryce Lopez MD Jan 30, 2018 15:53
[2018-01-30 16:00] VITALS: BP 101/54; PULSE 87; RESP 18; TEMP 97.5; O2SAT 94
[2018-01-30] MEDS: PANTOPRAZOLE SOD 40 MG DELAYED RELEASE TAB PO SCH (17:05)
[2018-01-30] MEDS: ENOXAPARIN SODIUM 40 MG/0.4 ML SYRINGE SQ SCH (17:05)
[2018-01-30] MEDS: HYDROmorphone HCL PCA 6 MG/30 ML IV SCH (17:09)
[2018-01-30 20:51] VITALS: BP 110/56; PULSE 92; RESP 17; TEMP 98; O2SAT 95
[2018-01-31 00:44] VITALS: BP 130/68; PULSE 83; RESP 17; TEMP 97.6; O2SAT 93
[2018-01-31 04:50] VITALS: BP 123/61; PULSE 89; RESP 17; TEMP 97.8; O2SAT 93
[2018-01-31] MEDS: PCA - TOTAL MG DILAUDID DELIVERED PER SHIFT OTHER SCH ×3 (06:00→21:29)
[2018-01-31] MEDS: ACETAMINOPHEN 1000 MG/100 ML 100 ML IV SCH ×5 (06:13→23:38)
[2018-01-31] MEDS: ONDANSETRON HCL 4 MG/2 ML VIAL IV PUSH PRN ×2 (06:15→18:03)
[2018-01-31 08:00] VITALS: BP 129/72; PULSE 90; RESP 22; TEMP 98.2; O2SAT 96
[2018-01-31] MEDS: DOCUSATE SODIUM 100 MG CAP PO SCH ×2 (10:04→19:43)
[2018-01-31 12:00] VITALS: BP 160/81; PULSE 91; RESP 20; TEMP 98.1; O2SAT 93
--- NOTE | 2018-01-31 13:12 | HHI.PR ---
Subjective Subjective Notes feels better, using SAP SECURITY ARCHITECT less, OOB today in chair Objective Vitals/I&O Vital Signs Date Time Temp Pulse Resp B/P (MAP) Pulse Ox O2 Delivery O2 Flow Rate FiO2 01/31/18 12:00 98.1 91 20 160/81 (107) 93 01/30/18 11:23 21 01/29/18 09:48 Nasal Cannula 3.00 Cardiovascular: Regular Lungs: Clear Abdomen: Non-distended, Post-op tenderness Extremities: No edema Narrative Exam inc c/d/i, binder on A/P Assessment and Plan 72 year old female; morbidly obese; POD3 Lap extensive DAVID; Lap repair recurrent ventral incisional hernias with [place]-Toni DualMesh 20 x 22 cm; lap blas -Scopolamine patch for nausea, a little better today -Zofran PRN -Regular diet, not eating if nausea -OOB and mobilize as tolerated Ez Araiza MD Jan 31, 2018 13:12
[2018-01-31 16:00] VITALS: BP 105/57; PULSE 76; RESP 20; TEMP 98; O2SAT 96
[2018-01-31] MEDS: PANTOPRAZOLE SOD 40 MG DELAYED RELEASE TAB PO SCH (18:04)
[2018-01-31] MEDS: ENOXAPARIN SODIUM 40 MG/0.4 ML SYRINGE SQ SCH (18:04)
[2018-01-31] MEDS: HYDROmorphone HCL PCA 6 MG/30 ML IV SCH (18:20)
[2018-01-31 20:00] VITALS: BP 129/60; PULSE 93; RESP 19; TEMP 98.5; O2SAT 97
[2018-02-01] VITALS (7 sets, daily range): BP systolic 119–155; BP diastolic 61–76; PULSE 75–95; RESP 16–19; TEMP 97.9–98.6; O2SAT 91–97
[2018-02-01] MEDS: ONDANSETRON HCL 4 MG/2 ML VIAL IV PUSH PRN ×3 (06:12→17:34)
[2018-02-01] MEDS: ACETAMINOPHEN 1000 MG/100 ML 100 ML IV SCH ×3 (06:12→17:33)
[2018-02-01] MEDS: PCA - TOTAL MG DILAUDID DELIVERED PER SHIFT OTHER SCH ×3 (06:13→19:55)
[2018-02-01] MEDS: DOCUSATE SODIUM 100 MG CAP PO SCH ×2 (10:28→19:54)
--- NOTE | 2018-02-01 10:55 | HHI.PR ---
Subjective Subjective Notes still nauseated, no emesis overnight or this am, still using DIRECT SUPPORT PROFESSIONAL, was up in chair already today, no BM or flatus Objective Vitals/I&O Vital Signs Date Time Temp Pulse Resp B/P (MAP) Pulse Ox O2 Delivery O2 Flow Rate FiO2 02/01/18 08:00 98.0 86 16 125/67 (86) 97 01/31/18 21:31 21 01/29/18 09:48 Nasal Cannula 3.00 Abdomen: Post-op tenderness Narrative Exam abd soft, mild distension, multiple surgical sites with steri strips, no bleeding A/P Assessment and Plan POD3 lap ventral hernia, rosalio slow recovery continue DIRECT SUPPORT PROFESSIONAL per pt request liquids for now Erwin Mei MD Feb 01, 2018 10:55
[2018-02-01] MEDS: HYDROmorphone HCL PCA 6 MG/30 ML IV SCH (11:07)
[2018-02-01] MEDS: REMOVE OLD SCOPOLAMINE PATCH T-DERMAL SCH (12:41)
[2018-02-01] MEDS: SCOPOLAMINE 1.5 MG PATCH T-DERMAL SCH (12:41)
[2018-02-01] MEDS: PANTOPRAZOLE SOD 40 MG DELAYED RELEASE TAB PO SCH (17:34)
[2018-02-01] MEDS: ENOXAPARIN SODIUM 40 MG/0.4 ML SYRINGE SQ SCH (17:34)
[2018-02-01] MEDS: LACTATED RINGER'S 1000 ML INJ 1,000 ML IV SCH (18:49)
[2018-02-02] VITALS (8 sets, daily range): BP systolic 113–147; BP diastolic 61–76; PULSE 90–96; RESP 16–20; TEMP 97.7–98.5; O2SAT 92–98
[2018-02-02] MEDS: ONDANSETRON HCL 4 MG/2 ML VIAL IV PUSH PRN ×3 (04:54→17:06)
[2018-02-02] MEDS: HYDROmorphone HCL PCA 6 MG/30 ML IV SCH ×2 (04:59→15:03)
[2018-02-02] MEDS: PCA - TOTAL MG DILAUDID DELIVERED PER SHIFT OTHER SCH ×3 (05:00→21:13)
[2018-02-02] MEDS: DOCUSATE SODIUM 100 MG CAP PO SCH ×2 (08:17→20:21)
[2018-02-02] MEDS: PSYLLIUM FIBER SF/GF 6 GM POWD PKT PO PRN ×2 (08:20→20:22)
[2018-02-02] MEDS ORDERED: HYDROmorphone HCL 2 MG TAB PO PRN (10:00)
[2018-02-02] MEDS ORDERED: PILL SPLITTER OTHER PRN (10:15)
--- NOTE | 2018-02-02 11:35 | HHI.PR ---
Subjective Subjective Notes "I think I need the pain pump one more day." Resting in bed eating breakfast Objective Vitals/I&O Vital Signs Date Time Temp Pulse Resp B/P (MAP) Pulse Ox O2 Delivery O2 Flow Rate FiO2 02/02/18 09:54 93 02/02/18 08:23 98.1 95 16 132/61 (84) 01/31/18 21:31 21 01/29/18 09:48 Nasal Cannula 3.00 Cardiovascular: Regular Lungs: Clear Abdomen: Other (multiple lap sites with mild brusing; abdomen soft; minimally tenderness ) Extremities: No edema A/P Assessment and Plan 72 year old female; morbidly obese; POD5 Lap extensive DAVID; Lap repair recurrent ventral incisional hernias with [place]-Toni DualMesh 20 x 22 cm; lap blas -Added PO Dilaudid; wean CANE CUTTER -Scopolamine patch for nausea -Zofran also available -Regular diet -OOB and mobilize as tolerated Attending Statement Patient has experienced a 2 new issues. She developed a sharp pain across her upper abdomen around 430 today. The pain pump CANE CUTTER helps for a short period of time. The pain she describes is consistent with a gas pain. She has indicated she has passed flatus but has not had a bowel movement. She takes Metamucil at home and is taking stool softeners here she would prefer to add Metamucil. The patient additionally has developed a delayed skin allergic reaction with looks like to adhesives from the Steri-Strips on her abdominal wall. She has a rash mildly raised erythematous areas that appears centered around where each of her Steri-Strips are. The Steri-Strips were removed. She has some small areas of skin loss and blister. The wounds otherwise appear well-healed. Her abdominal wall otherwise is intact. She remains in good spirits. Plan leave abdominal wall open to the air to allow to dry out. She is already got Benadryl ordered. I have added Zyrtec as an anti-allergy med. Additionally have ordered Solu-Medrol 10 mg IM first dose tonight second dose tomorrow. We will avoid any further Steri-Strip adhesive to her skin. We talked about her getting up out of bed and walking the halls. This will help her bowels work normally. Will get rid of the CANE CUTTER in the morning and she has oral Dilaudid ordered. We will re-add Metamucil to her regimen. If we need to add something like MiraLAX we can consider doing that in the next day or 2. I was hoping she would already be home after her surgery now she has developed this allergic reaction type rash on her abdominal wall. If we can get her off her CANE CUTTER and oral pain medications get her bowels working and get improvement in the abdominal wall rash with the above-mentioned therapies she could get home in the next day or 2. The exam, history, and the medical decision-making described in the above note were completed with the assistance of the mid-level provider. I reviewed and agree with the findings presented. I attest that I had a [id number] encounter with the patient on the same day, and personally performed and documented my assessment and findings in the medical record. Mary Chavez/[facility] Feb 02, 2018 11:35 Bryce Lopez MD Feb 02, 2018 18:22
[2018-02-02] MEDS: diphenhydrAMINE HCL 50 MG/ML VIAL IV PUSH PRN ×2 (15:10→21:13)
[2018-02-02] MEDS: ENOXAPARIN SODIUM 40 MG/0.4 ML SYRINGE SQ SCH (17:05)
[2018-02-02] MEDS: PANTOPRAZOLE SOD 40 MG DELAYED RELEASE TAB PO SCH (17:05)
[2018-02-02] MEDS: methylPREDNISolone SOD SUCC 40 MG/1 ML VIAL IM SCH (18:15)
[2018-02-02] MEDS: CETIRIZINE HCL 10 MG TAB PO SCH (18:15)
[2018-02-03 00:30] VITALS: BP 127/68; PULSE 93; RESP 17; TEMP 97.9; O2SAT 93
[2018-02-03 04:57] VITALS: BP 126/78; PULSE 88; RESP 17; TEMP 97.7; O2SAT 95
[2018-02-03] MEDS: PCA - TOTAL MG DILAUDID DELIVERED PER SHIFT OTHER SCH ×4 (05:47→21:07)
[2018-02-03] MEDS: ONDANSETRON HCL 4 MG/2 ML VIAL IV PUSH PRN ×3 (06:15→17:03)
[2018-02-03 07:48] VITALS: BP 116/57; PULSE 77; RESP 19; TEMP 98.5; O2SAT 95
[2018-02-03] MEDS: CETIRIZINE HCL 10 MG TAB PO SCH (08:11)
[2018-02-03] MEDS: HYDROmorphone HCL 2 MG TAB PO PRN ×4 (08:11→21:05)
[2018-02-03] MEDS: methylPREDNISolone SOD SUCC 40 MG/1 ML VIAL IM SCH ×2 (08:12→14:00)
[2018-02-03] MEDS: diphenhydrAMINE HCL 50 MG/ML VIAL IV PUSH PRN ×3 (08:12→17:03)
[2018-02-03] MEDS: DOCUSATE SODIUM 100 MG CAP PO SCH ×2 (08:12→21:04)
[2018-02-03] MEDS: PSYLLIUM FIBER SF/GF 6 GM POWD PKT PO SCH (08:13)
[2018-02-03 12:00] VITALS: BP 121/56; PULSE 82; RESP 19; TEMP 98.5; O2SAT 96
--- NOTE | 2018-02-03 12:57 | HHI.PR ---
Subjective Subjective Notes Patient is sitting up in the chair. She looks very comfortable. She ate about third of her pot roast and some other food for lunch. She is kept that down. She complains earlier of nausea and threw up once before she ever took the oral Dilaudid. She has not moved her bowels. She walked the halls on her own. She has not passed further flatus. She declines any additional laxative, I offered her magnesium citrate and MiraLAX. She wants to take another dose of her Metamucil. Objective Vitals/I&O Vital Signs Date Time Temp Pulse Resp B/P (MAP) Pulse Ox O2 Delivery O2 Flow Rate FiO2 02/03/18 12:00 98.5 82 19 121/56 (77) 96 02/02/18 17:48 21 Cardiovascular: Regular Lungs: Clear Abdomen: Other (The severe erythematous changes of the abdominal wall have significantly improved. There is now just residual ecchymotic type change and dry faint residual erythema. Her abdominal exam is benign postsurgical.) Extremities: No edema, Perfused A/P Assessment and Plan Postop day 7 laparoscopic repair multiple recurrent ventral incisional hernias with [place]-Toni DualMesh, laparoscopic cholecystectomy for chronic calculus cholecystitis. Postoperatively the patient's had some problems with nausea as well as postoperative ileus likely related to narcotic. We have stopped the [employer]. She is reluctant to pursue any additional laxative at this time. We started her Metamucil yesterday. The patient suffered from a delayed allergic reaction to adhesive from the Steri-Strips. She has been treated successfully with Benadryl , Zyrtec, Solu-Medrol. I will order 2 more doses of the Solu-Medrol as her response has been dramatic. The patient will continue to walk the halls, and if she does not have success as far as flatus and bowel movements are concerned we will add a laxative tomorrow. I am hopeful for discharge from the hospital in the next 1-2 days. Bryce Lopez MD Feb 03, 2018 12:57
[2018-02-03] MEDS: HYDROmorphone HCL PF 2 MG/ML VIAL IV PRN ×2 (13:59→18:31)
[2018-02-03 15:37] VITALS: BP 115/55; PULSE 88; RESP 19; TEMP 98.7; O2SAT 95
[2018-02-03] MEDS: ENOXAPARIN SODIUM 40 MG/0.4 ML SYRINGE SQ SCH (17:03)
[2018-02-03] MEDS: PANTOPRAZOLE SOD 40 MG DELAYED RELEASE TAB PO SCH (17:04)
[2018-02-03 20:00] VITALS: BP 146/86; PULSE 77; RESP 18; TEMP 98.3; O2SAT 93
[2018-02-03] MEDS: PSYLLIUM FIBER SF/GF 6 GM POWD PKT PO PRN (21:04)
[2018-02-04] VITALS: BP 122/56; PULSE 79; RESP 18; TEMP 98.2; O2SAT 95
[2018-02-04] MEDS: HYDROmorphone HCL PF 2 MG/ML VIAL IV PRN ×5 (00:21→21:44)
[2018-02-04] MEDS: diphenhydrAMINE HCL 50 MG/ML VIAL IV PUSH PRN ×4 (00:22→21:47)
[2018-02-04 04:00] VITALS: BP 106/58; PULSE 73; RESP 18; TEMP 97.7; O2SAT 95
[2018-02-04] MEDS: HYDROmorphone HCL 2 MG TAB PO PRN ×4 (06:02→19:39)
[2018-02-04] MEDS: ONDANSETRON HCL 4 MG/2 ML VIAL IV PUSH PRN ×3 (06:05→21:47)
[2018-02-04 07:40] VITALS: BP 110/61; PULSE 71; RESP 18; TEMP 98.4; O2SAT 94
[2018-02-04] MEDS: CETIRIZINE HCL 10 MG TAB PO SCH (08:13)
[2018-02-04] MEDS: DOCUSATE SODIUM 100 MG CAP PO SCH ×3 (08:14→19:40)
[2018-02-04] MEDS: methylPREDNISolone SOD SUCC 40 MG/1 ML VIAL IM SCH (08:15)
[2018-02-04] MEDS: PSYLLIUM FIBER SF/GF 6 GM POWD PKT PO SCH (08:15)
[2018-02-04 11:48] VITALS: BP 115/58; PULSE 79; RESP 18; TEMP 98.2; O2SAT 96
--- NOTE | 2018-02-04 13:07 | HHI.PR ---
Subjective Subjective Notes Patient up in the chair. She is feeling a little bit better each day. Earlier today she had a pain level 8 out of 10 receives of intravenous pain medication that helped. The pain pills last a little longer. She has passed a large amount of flatus and feels like she is going to have a bowel movement. She is eating normal foods without nausea or vomiting. She has been up walking the halls 3 times on her own already today. Her brother Pepe was at her bedside. Objective Vitals/I&O Vital Signs Date Time Temp Pulse Resp B/P (MAP) Pulse Ox O2 Delivery O2 Flow Rate FiO2 02/04/18 11:48 98.2 79 18 115/58 (77) 96 02/02/18 17:48 21 Abdomen: Non-distended, Non-tender, Other (Incision sites all healing well. Mild residual skin changes from the adhesive allergic reaction.) Extremities: No edema, Perfused A/P Assessment and Plan Postop day 8 laparoscopic repair multiple recurrent ventral incisional hernias with [place]-Toni DualMesh, laparoscopic cholecystectomy for chronic calculus cholecystitis. Slow gradual resolution of narcotic induced nausea and postoperative ileus. We are trying to minimize narcotic use. She continues to walk the halls and do a good job of that. We talked about discharge and she thinks she will be ready in the next 1-2 days. She requests a home health aide to check on her the first couple of days she is home. We will continue current medications at this time. She is experience significant resolution of the adhesive allergic reaction to her abdominal skin. Bryce Lopez MD Feb 04, 2018 13:07
[2018-02-04] MEDS: PCA - TOTAL MG DILAUDID DELIVERED PER SHIFT OTHER SCH ×3 (14:00→19:00)
[2018-02-04] MEDS: REMOVE OLD SCOPOLAMINE PATCH T-DERMAL SCH (14:00)
[2018-02-04] MEDS: SCOPOLAMINE 1.5 MG PATCH T-DERMAL SCH (14:00)
[2018-02-04] MEDS ORDERED: WALKER WHEELS/F1 MIS (15:41)
--- NOTE | 2018-02-04 15:42 | HHI.FF ---
Face to Face Verification Diagnosis: (1) Incisional hernia Home Health Nursing Order: Wound care and dressing changes Nursing assessment with vital signs Instructions: Continued monitoring of abdominal incision I have seen patient Jordyn Koroma on 02/04/18. My clinical findings support the need for the requested home health care services because: Limited ability to care for self High risk of falls I certify that my clinical findings support that this patient is homebound because: Post-op weakness Mary Chavez/[employer] Feb 04, 2018 15:42
[2018-02-04 16:00] VITALS: BP 120/58; PULSE 93; RESP 18; TEMP 98.6; O2SAT 96
[2018-02-04] MEDS: PANTOPRAZOLE SOD 40 MG DELAYED RELEASE TAB PO SCH (16:54)
[2018-02-04] MEDS: ENOXAPARIN SODIUM 40 MG/0.4 ML SYRINGE SQ SCH (16:54)
[2018-02-04 20:11] VITALS: BP 125/71; PULSE 102; RESP 18; TEMP 98.5; O2SAT 89
[2018-02-05] VITALS: BP 125/60; PULSE 86; RESP 18; TEMP 97.7; O2SAT 95
[2018-02-05] MEDS: HYDROmorphone HCL 2 MG TAB PO PRN ×5 (00:52→17:11)
[2018-02-05] MEDS: diphenhydrAMINE HCL 50 MG/ML VIAL IV PUSH PRN ×3 (05:38→17:26)
[2018-02-05] MEDS: ONDANSETRON HCL 4 MG/2 ML VIAL IV PUSH PRN ×2 (05:38→20:36)
[2018-02-05 07:51] VITALS: BP 112/56; PULSE 85; RESP 19; TEMP 98.2; O2SAT 96
[2018-02-05] MEDS: DOCUSATE SODIUM 100 MG CAP PO SCH ×2 (08:31→20:36)
[2018-02-05] MEDS: CETIRIZINE HCL 10 MG TAB PO SCH (08:31)
[2018-02-05] MEDS: PSYLLIUM FIBER SF/GF 6 GM POWD PKT PO SCH (08:32)
[2018-02-05] MEDS: HYDROmorphone HCL PF 2 MG/ML VIAL IV PRN ×2 (09:29→14:47)
[2018-02-05 11:47] VITALS: BP 124/69; PULSE 87; RESP 19; TEMP 98.7; O2SAT 96
[2018-02-05] MEDS ORDERED: POLYETHYLENE GLYCOL 17 GM PKG PO ONE (12:30)
[2018-02-05] MEDS ORDERED: DOCUSATE SODIUM 50 MG/SENNA 8.6 MG TAB PO ONE (12:30)
[2018-02-05] MEDS ORDERED: DILA4TAB10 PO (13:22)
--- NOTE | 2018-02-05 13:24 | HHI.PR ---
Subjective Subjective Notes Up in the chair. Eating lunch. Minimal residual nausea. Passed flatus and had a small bite BM this morning. Has been walking the halls. Voiding without difficulties. Just received laxative. Wants to go home in the morning. Objective Vitals/I&O Vital Signs Date Time Temp Pulse Resp B/P (MAP) Pulse Ox O2 Delivery O2 Flow Rate FiO2 02/05/18 11:47 98.7 87 19 124/69 (87) 96 02/02/18 17:48 21 Abdomen: Non-distended, Non-tender, Other (Erythema resolved. Incision sites all healing well.) Extremities: No edema, Perfused A/P Assessment and Plan Postop laparoscopic repair multiple recurrent ventral incisional hernias with [place]-Toni DualMesh, laparoscopic cholecystectomy for chronic calculus cholecystitis. Patient desires discharge tomorrow morning of. Discharge orders have been placed. A prescription for Dilaudid will be on her chart. She needs follow-up with me in the office in 1-2 weeks. Wound care instructions were provided. The patient's daughter was at her bedside. Bryce Lopez MD Feb 05, 2018 13:24
[2018-02-05] MEDS: PCA - TOTAL MG DILAUDID DELIVERED PER SHIFT OTHER SCH ×2 (14:00→20:32)
[2018-02-05 15:52] VITALS: BP 119/55; PULSE 86; RESP 19; TEMP 98.6; O2SAT 94
[2018-02-05] MEDS: PANTOPRAZOLE SOD 40 MG DELAYED RELEASE TAB PO SCH (17:11)
[2018-02-05] MEDS: ENOXAPARIN SODIUM 40 MG/0.4 ML SYRINGE SQ SCH (17:12)
[2018-02-05 19:36] VITALS: BP 111/62; PULSE 87; RESP 18; TEMP 97.8; O2SAT 95
[2018-02-05] MEDS: oxyCODONE/ACETAMINOPHEN 10 MG/325 MG TAB PO PRN (20:36)
[2018-02-05 23:45] VITALS: BP 113/59; PULSE 88; RESP 18; TEMP 97.9; O2SAT 93
[2018-02-06 01:56] VITALS: BP 111/55; PULSE 85
[2018-02-06] MEDS: diphenhydrAMINE HCL 50 MG/ML VIAL IV PUSH PRN (02:05)
[2018-02-06] MEDS: PCA - TOTAL MG DILAUDID DELIVERED PER SHIFT OTHER SCH ×2 (04:53→10:58)
[2018-02-06 06:13] VITALS: BP 114/65
[2018-02-06] MEDS: oxyCODONE/ACETAMINOPHEN 10 MG/325 MG TAB PO PRN ×2 (06:18→12:07)
[2018-02-06 08:00] VITALS: BP 112/57; PULSE 85; RESP 18; TEMP 98.5; O2SAT 94
[2018-02-06] MEDS: PSYLLIUM FIBER SF/GF 6 GM POWD PKT PO SCH (09:00)
[2018-02-06] MEDS: DOCUSATE SODIUM 100 MG CAP PO SCH (09:00)
[2018-02-06] MEDS: CETIRIZINE HCL 10 MG TAB PO SCH (09:15)
[2018-02-06] MEDS: HYDROmorphone HCL 2 MG TAB PO PRN (09:15)
--- NOTE | 2018-02-06 12:41 | HHI.DS ---
Discharge Summary Admission Date Jan 28, 2018 at 21:25 Discharge Date: Feb 06, 2018 Admitting Diagnosis Brief History 72 year old female; morbidly obese; s/p Lap extensive DAVID; Lap repair recurrent ventral incisional hernias with [place]-Toni DualMesh 20 x 22 cm; lap blas PE at Discharge Ambulating in room Cardio: RRR Resp: CTAB Abd: healing lap sites with decreased redness from allergic reaction to Steri strips Hospital Course This is a 72 year old female; morbidly obese; s/p Lap extensive DAVID; Lap repair recurrent ventral incisional hernias with [place]-Toni DualMesh 20 x 22 cm; lap blas. The patient's pain was controlled using oral pain medication on discharged. She was able to tolerate a regular diet. Her bowels were functioning on discharge. She did have a delayed allergic reaction to the Steri Strips and they were removed. She was given steroids and Benadryl. She will follow up in the office with Dr. Lopez. Pt Condition on Discharge: Good Discharge Disposition: Disch w/ Home Health Serv Discharge Instructions DIET: Follow Instructions for: As Tolerated, No Restrictions Additional Diet Instructions: stool softeners, laxatives as neded. Activities you can perform: Shower/Bath Activities to Avoid: Strenuous Activity, Driving Mary Chavez/[employer] Specialist ARNP Feb 06, 2018 12:41
== END 2018-02-06 12:44 | disposition home health service (06) | DRG 418 ==
LOC: HSDC 11:16 → OBSVTOIN 21:25 → N06B 21:25
PROVIDERS: ADMIT Surgery Trauma Surgery; ATTEND Surgery Trauma Surgery
PROC: 0T9B70Z Drainage of Bladder with Drainage Device, Via Natural or Artificial Opening (ICD-10-PCS; 2018-01-28)
PROC: 0FT44ZZ Resection of Gallbladder, Percutaneous Endoscopic Approach (ICD-10-PCS; principal; 2018-01-28 13:28)
PROC: 0WUF4JZ Supplement Abdominal Wall with Synthetic Substitute, Percutaneous Endoscopic Approach (ICD-10-PCS; 2018-01-28 13:28)
DX: K80.10 Calculus of gallbladder with chronic cholecystitis without obstruction (principal); Z68.42 Body mass index [BMI] 45.0-49.9, adult; K56.7 Ileus, unspecified; K43.2 Incisional hernia without obstruction or gangrene; E66.01 Morbid (severe) obesity due to excess calories; R21 Rash and other nonspecific skin eruption; T40.605A Adverse effect of unspecified narcotics, initial encounter; Y92.239 Unspecified place in hospital as the place of occurrence of the external cause
CPT/HCPCS: 76937; 80048; 88304; C1781; J0131; J0690; J1100; J1170; J1200; J1650; J2310; J2405; J2710; J2920; J7120; J8501